=== PATIENT | male | born 1960 | race Caucasian/White ===

== ENCOUNTER 2023-01-13 07:27 | Outpatient (CLI) | payer MEDICARE ==
[2023-01-13 07:45] LABS: HCT - HEMATOCRIT 45.8 % (42.0-52.0); HGB - HEMOGLOBIN 15.1 g/dL (14.0-18.0); MEAN CORPUSCULAR VOLUME 90.9 fL (80.0-94.0); MEAN PLATELET VOLUME 9.2 fL (7.4-11.4); RED BLOOD COUNT 5.04 10^6/uL (4.70-6.10); RED CELL DISTRIBUTION WIDTH 13.7 % (12.0-15.0); WHITE BLOOD COUNT 9.5 x10^3/uL (4.8-10.8)
[2023-01-13 07:55] LABS: CREATININE,URINE 179.5 mg/dL; MICROALBUM/CREATININE RATIO,UR 10.6 ug/mg (<30.0); MICROALBUMIN,URINE 1.9 mg/dL
[2023-01-13 07:57] LABS: ALBUMIN 4.4 g/dL (3.2-5.5); ALBUMIN/GLOBULIN RATIO 1.5 (1.0-2.2); ALKALINE PHOSPHATASE 71 IU/L (42-121); ALT ALANINE AMINOTRANSFERASE 23 IU/L (10-60); AST ASPARTATE AMINOTRANSFERASE 22 IU/L (10-42); BILIRUBIN,TOTAL 0.5 mg/dL (0.2-1.0); BUN - BLOOD UREA NITROGEN 17 mg/dL (6-20); CALCIUM 9.4 mg/dL (8.5-10.3); CARBON DIOXIDE - CO2 31 mmol/L (21-32); CHLORIDE 102 mmol/L (101-111); CHOL/HDL RATIO 4.4 (<5.0); CHOLESTEROL 195 mg/dL; CREATININE 0.8 mg/dL (0.6-1.3); GFR - MDRD 99 (>89); GLUCOSE 157 mg/dL (74-104); HDL CHOLESTEROL 44 mg/dL; LDL CHOLESTEROL,CALCULATED 121 mg/dL; LDL/HDL RATIO 2.8 (<3.6); SODIUM 139 mmol/L (135-145); TOTAL PROTEIN 7.3 g/dL (6.4-8.9); TRIGLYCERIDES 149 mg/dL (48-352); VLDL CHOLESTEROL 30 mg/dL
[2023-01-13 08:09] LABS: THYROID STIMULATING HORMONE 1.53 uIU/mL (0.34-5.60)
[2023-01-13 10:41] LABS: ESTIMATED AVERAGE GLUCOSE 160 mg/dL (70-100); HEMOGLOBIN A1c% 7.2 % (4.27-6.07)
== END 2023-01-13 07:28 | disposition home or self-care (01) ==
LOC: LAB 07:27
PROVIDERS: ATTEND Family Medicine
DX: I10 Essential (primary) hypertension (principal); E78.5 Hyperlipidemia, unspecified; E11.8 Type 2 diabetes mellitus with unspecified complications; Z95.810 Presence of automatic (implantable) cardiac defibrillator; I48.21 Permanent atrial fibrillation; R97.20 Elevated prostate specific antigen [PSA]
CPT/HCPCS: 36415; 80053; 80061; 82043; 82570; 83036; 83721; 84153; 84443; 85027

== ENCOUNTER 2023-01-28 10:28 | Outpatient (CLI) | payer MEDICARE ==
--- NOTE | 2023-01-28 14:50 | Ultrasound Report ---
PROCEDURE: Ankle Brachial Index INDICATIONS: LEFT LEG CLAUDICATION TECHNIQUE: Ankle-brachial indices were obtained bilaterally and recorded. COMPARISONS: None. FINDINGS: Right brachial: 156 mmHg Right ankle: 164 mmHg Right PADDY: 1.01 Right PROSTHETIST: 43.6 cm/S, biphasic LUIS/DP: 51.8/60.9 cm/S, biphasic/biphasic Left brachial: 161 mmHg Left ankle: 135 mmHg Left PADDY: 0.83 Left PROSTHETIST: 32.9 cm/S, monophasic At T8/DP: 27.9/5.8, monophasic/monophasic Scattered atherosclerotic plaque bilaterally. Healing potential: Ankle pressures >55 mm Hg in non-diabetics and >80 mm Hg in diabetics are likely to achieve primary h ealing of ischemic foot ulcers. Toe pressures >30 mm Hg are likely to achieve primary healing of ischemic foot ulcers, toe or transme tatarsal amputations. IMPRESSION: 1. Right lower extremity: -Resting PADDY is normal at 1 which may be falsely elevated in the setting of calcified vessels. -Biphasic waveforms in the PROSTHETIST and LUIS/DPA. 2. Left lower extremity: -Resting PADDY is moderately reduced at 0.83 which may be falsely elevated in the setting of calcified vessels. -Monophasic waveforms in the PROSTHETIST and LUIS/DPA with trickle flow in the DPA. Reviewed by: Anthony Narayan MD on 01/28/2023 2:48 PM PST Approved by: Anthony Narayan MD on 01/28/2023 2:48 PM PST Station ID: [id number]
== END 2023-01-28 10:29 | disposition home or self-care (01) ==
LOC: DI 10:28
PROVIDERS: ATTEND Family Medicine
DX: I73.9 Peripheral vascular disease, unspecified (principal)
CPT/HCPCS: 93922

== ENCOUNTER 2023-02-19 08:52 | Emergency (ER) | payer MEDICARE ==
[2023-02-19 09:33] LABS: BASOPHILS % (AUTO) 0.4 %; EOSINOPHILS # (AUTO) 0.3 10^3/uL (0.0-0.7); EOSINOPHILS % (AUTO) 3.4 %; HCT - HEMATOCRIT 49.7 % (42.0-52.0); HGB - HEMOGLOBIN 15.9 g/dL (14.0-18.0); LYMPHOCYTES % (AUTO) 32.3 %; MEAN CORPUSCULAR HEMOGLOBIN 29.4 pg (27.0-31.0); MEAN CORPUSCULAR VOLUME 91.9 fL (80.0-94.0); MEAN PLATELET VOLUME 8.9 fL (7.4-11.4); MONOCYTES # (AUTO) 0.8 10^3/uL (0.0-1.0); MONOCYTES % (AUTO) 8.5 %; PLT - PLATELET COUNT 285 10^3/uL (130-450); RED BLOOD COUNT 5.41 10^6/uL (4.70-6.10); RED CELL DISTRIBUTION WIDTH 13.3 % (12.0-15.0); WHITE BLOOD COUNT 9.2 x10^3/uL (4.8-10.8)
[2023-02-19 09:46] LABS: ALBUMIN 4.3 g/dL (3.2-5.5); ALBUMIN/GLOBULIN RATIO 1.6 (1.0-2.2); BILIRUBIN,TOTAL 0.3 mg/dL (0.2-1.0); CALCIUM 9.7 mg/dL (8.5-10.3); POTASSIUM 3.8 mmol/L (3.5-4.5)
--- NOTE | 2023-02-19 10:54 | ED Physician Documentation ---
PD HPI ABD PAIN - Stated complaint Stated Complaint: RT SD PX - Chief complaint Chief Complaint: Abd Pain - History obtained from History obtained from: Patient - History of Present Illness Timing - onset: How many days ago (2) Timing - duration: Days Timing - details: Gradual onset, Still present (but very milder the past couple hours while in witing room.), Waxing and waning Quality: Aching, Sharp, Pain Location: RLQ Radiation: Right flank Improved by: Laying still. No: Eating Worsened by: Moving. No: Eating, Breathing, Palpation Associated symptoms: Nausea, Dysuria. No: Fever, Vomiting, Diarrhea, Constipation, Melena Similar symptoms before: Has not had sx before Review of Systems Constitutional: denies: Fever, Chills, Myalgias Nose: denies: Rhinorrhea / runny nose, Congestion Throat: denies: Sore throat Respiratory: denies: Cough GI: reports: Abdominal Pain, Nausea. denies: Vomiting, Constipation, Diarrhea : reports: Frequency. denies: Discharge Skin: denies: Rash PD PAST MEDICAL HISTORY - Past Medical History Past Medical History: Yes Cardiovascular: Atrial fibrillation Endocrine/Autoimmune: Type 2 diabetes - Past Surgical History Past Surgical History: Yes - Present Medications Home Medications: Ambulatory Orders Medication Instructions Recorded Confirmed HYDROcod/ACETAM 5/325 [[place] 5/325] 1 ea PO Q6H PRN #10 tablet 02/19/23 Naproxen 500 mg PO BID #20 tab 02/19/23 Ondansetron Odt [Zofran] 4 mg TL Q6H PRN #10 tablet 02/19/23 cephALEXin [Keflex] 500 mg PO TID #20 cap 02/19/23 - Allergies Allergies/Adverse Reactions: Allergies Allergy/AdvReac Type Severity Reaction Status Date / Time No Known Drug Allergies Allergy Verified 02/19/23 09:15 - Social History Does the pt smoke?: Yes Smoking Status: Current every day smoker Does the pt drink ETOH?: Yes Does the pt have substance abuse?: Yes Substance Use and Type: Marijuana - Immunizations Immunizations are current?: Yes - POLST Patient has POLST: No PD ED PE NORMAL - Vitals Vital signs reviewed: Yes - General General: Alert and oriented X 3, No acute distress, Well developed/nourished - Cardiac Cardiac: RRR, No murmur - Respiratory Respiratory: Clear bilaterally - Abdomen Abdomen: Normal bowel sounds, Soft, Non distended, No organomegaly, Other (minimally tender suprapubic to RLQ without guarding, percussion nor ebound tenderness. Mild right CVA tendeer. Not tender RUQ. No inguinal nodes nor hernias. scrotal exam deferred. ) - Rectal Rectal: Deferred - Derm Derm: Normal color, Warm and dry, No rash (nor any skin tenderness on right side abd/back. ) Results - Vitals Vitals: Vital Signs - 24 hr 02/19/23 02/19/23 02/19/23 09:09 09:14 11:14 Temperature 36.6 C 36.6 C 36.6 C Heart Rate 81 81 80 Respiratory 16 16 16 Rate Blood Pressure 155/73 H 155/73 H 140/70 H O2 Saturation 97 97 98 02/19/23 13:00 Temperature 36.6 C Heart Rate 86 Respiratory 16 Rate Blood Pressure 130/70 O2 Saturation 100 Oxygen O2 Source Room air - Labs Labs: Laboratory Tests 02/19/23 02/19/23 02/19/23 09:27 09:27 09:57 WBC 9.2 RBC 5.41 Hgb 15.9 Hct 49.7 MCV 91.9 MCH 29.4 MCHC 32.0 RDW 13.3 Plt Count 285 MPV 8.9 Neut # (Auto) 5.0 Lymph # (Auto) 3.0 [place] # (Auto) 0.8 Eos # (Auto) 0.3 Baso # (Auto) 0.0 Absolute Nucleated RBC 0.00 Nucleated RBC % 0.0 Sodium 141 Potassium 3.8 Chloride 101 Carbon Dioxide 33 H Anion Gap 7.0 BUN 18 Creatinine 1.0 Estimated GFR (MDRD) 76 L Glucose 180 H Calcium 9.7 Total Bilirubin 0.3 AST 16 ALT 18 Alkaline Phosphatase 70 Total Protein 7.0 Albumin 4.3 Globulin 2.7 Albumin/Globulin Ratio 1.6 Lipase 29 Urine Color YELLOW Urine Clarity CLEAR Urine pH 6.0 Ur Specific [place] 1.020 Urine Protein NEGATIVE Urine Glucose (UA) NEGATIVE Urine Ketones NEGATIVE Urine Occult Blood LARGE H Urine Nitrite POSITIVE H Urine Bilirubin NEGATIVE Urine Urobilinogen 0.2 (NORMAL) Ur Leukocyte Esterase NEGATIVE Urine RBC TNTC H Urine WBC 6-10 H Ur Squamous Epith Cells RARE Squamous Amorphous Sediment Few Urine Bacteria Moderate H Ur Microscopic Review INDICATED Urine Culture Comments INDICATED PD Medical Decision Making - ED course Complexity details: reviewed results, considered differential (lower abd pain with some dysuria for 2 days. Pain RLQ mainly and not to the flank but some to mid right abd. Denies scrotal swelling but states some pain to groin. ), d/w patient Reviewed Lab Results: UA is c/w UTI and addresses some of his symptoms. Concern for the RLQ pain, but he has little tenderness. I feel more focal infections such as appy would be more tender. Consider ureteral stone. right diverticulitis would fit as well. We discussed CT to better eval for other process. However the flow through CT was slower and pt had to attend to others at home, so wanted to leave before getting the CT. We discussed options and agreed to treat the UTI and see how pain goes. Departure - Departure Disposition: 01 Home, Self Care Clinical Impression: Right lower quadrant abdominal pain, UTI (urinary tract infection) Condition: Stable Record reviewed to determine appropriate education?: Yes Instructions: ED Abdominal Pain Appendx Poss, ED UTI Cystitis Male Prescriptions: cephALEXin [Keflex] 500 mg PO TID #20 cap Naproxen 500 mg PO BID #20 tab HYDROcod/ACETAM 5/325 [[place] 5/325] 1 ea PO Q6H PRN #10 tablet PRN Reason: Pain Ondansetron Odt [Zofran] 4 mg TL Q6H PRN #10 tablet PRN Reason: Nausea / Vomiting Comments: Your white count/blood count are good. Your urine sample does show signs of possible infection and we can treat it with cephalexin 3 times daily for a week. This could account for some of the discomfort you have with urination and pain down to the scrotum etc. However am not sure what accounts for the pain in the lower abdomen. At this point it seems unlikely to be appendicitis given the lack of tenderness. However if you do have increasing pain, more consistent pain or tenderness, fevers, vomiting then return for CT scanning. Otherwise consider the possibility of a small stone or just the pain from a bladder infection. I would suggest staying well-hydrated. Ondansetron if needed for nausea. Naproxen twice daily with food for pain and inflammation. Add Tylenol every 4-6 hours if needed or hydrocodone if needed for worse pain. I sent your prescriptions to [facility] in [place]. Recheck if not completely resolved over the next couple of days and sooner if worse. I am prescribing a short course of narcotic pain medication for you. These are potentially dangerous and addictive medications that should be used carefully. These medications may constipate you. Take an [id number] stool softener such as docusate twice daily with plenty of water while taking these medications. If you go 24 hours without a bowel movement, take [id number] MiraLAX, per package instructions. Do not drink or drive while taking these medications. If you received narcotic or sedating medications while in the emergency department do not drive for 24 hours. Store this medication in a safe, secure place and out of reach of children. It is a violation of federal law to give or sell this medication to another person or to use in a manner other than prescribed. The ED will not refill narcotic prescriptions, including prescriptions lost or stolen. You can dispose of unwanted medications at the [facility]'s office or at several pharmacies such as [facility]. Forms: PCP List Discharge Date/Time: 02/19/23 13:04
[2023-02-19 11:10] LABS: BILIRUBIN,URINE NEGATIVE (NEGATIVE); CLARITY,URINE CLEAR (CLEAR); GLUCOSE, URINE (UA) NEGATIVE (NEGATIVE); KETONES,URINE (UA) NEGATIVE (NEGATIVE); LEUKOCYTE ESTERASE, URINE NEGATIVE (NEGATIVE); NITRITE,URINE POSITIVE (NEGATIVE); OCCULT BLOOD,URINE LARGE (NEGATIVE); PROTEIN,URINE NEGATIVE (NEGATIVE); UROBILINOGEN,URINE 0.2 (NORMAL) E.U./dL (NORMAL)
[2023-02-19 11:11] LABS: AMORPHOUS SEDIMENT,UR Few /LPF; BACTERIA,URINE Moderate /HPF (None Seen); RBC,URINE TNTC /HPF (0-5); SQUAMOUS EPITHELIAL CELL,UR RARE Squamous (<= Few)
[2023-02-19] MEDS ORDERED: cephALEXin 250 MG CAPSULE PO STA (12:54)
[2023-02-19 13:07] VITALS: BP 130/70; O2SAT 100
== END 2023-02-19 13:04 | disposition home or self-care (01) ==
LOC: ED 08:52
DX: N39.0 Urinary tract infection, site not specified (principal); I48.91 Unspecified atrial fibrillation; E11.9 Type 2 diabetes mellitus without complications; F17.200 Nicotine dependence, unspecified, uncomplicated; Z79.899 Other long term (current) drug therapy
CPT/HCPCS: 36415; 80053; 81001; 83690; 85025; 87086; 99284; A9270; 81003

== ENCOUNTER 2023-08-31 16:24 | Outpatient (CLI) | payer MEDICARE ==
[2023-08-31 16:50] LABS: CALCIUM 9.8 mg/dL (8.5-10.3); CREATININE 0.9 mg/dL (0.6-1.3); POTASSIUM 4.3 mmol/L (3.5-4.5)
[2023-08-31 20:15] LABS: ESTIMATED AVERAGE GLUCOSE 137 mg/dL (70-100); HEMOGLOBIN A1c% 6.4 % (4.27-6.07)
== END 2023-08-31 16:25 | disposition home or self-care (01) ==
LOC: LAB 16:24
PROVIDERS: ATTEND Family Medicine
DX: E78.5 Hyperlipidemia, unspecified (principal); I10 Essential (primary) hypertension; E11.8 Type 2 diabetes mellitus with unspecified complications
CPT/HCPCS: 36415; 80048; 83036